=== PATIENT | male | born 1970 | race Caucasian/White ===

== ENCOUNTER 2021-07-06 12:14 | Outpatient (REF) | payer MEDICARE, MEDICAID, SELFPAY ==
--- NOTE | ~2021-07-06 | XR_ITS ---
EXAMINATION: XR CHEST CLINICAL INFORMATION: Cough. COMPARISON: CT chest 03/21/2020. TECHNIQUE: 2 views of the chest were obtained. FINDINGS: The lungs are well-expanded with increased parahilar interstitial markings slightly greater on the right with patchy opacities in the right upper lower lobe suspicious for infiltrates. No evidence of pleural effusion. The heart size and pulmonary vascularity is normal. No gross bony abnormality seen. XR/XR chest 2V IMPRESSION: Bilateral increased interstitial markings especially right lung suggestive interstitial infiltrates or edema. In addition there is patchy opacities seen in the right upper and right lower lobe. There is some underlying chronic interstitial lung changes which were noted on the previous CT chest exam. Patchy nonspecific peribronchial opacities upper lobes and peripheral subpleural chronic gastritis disease in the right upper lobe with air bronchograms were noted on the previous CT exam 03/21/2020 with some fibrotic changes. Normal heart size.
[2021-07-06 14:54] LABS: Influenza A PCR NEGATIVE (Negative); Influenza B PCR NEGATIVE (Negative); Resp Syncy Virus RNA Qual PCR NEGATIVE (Negative); SARS COV2 PCR INHOUSE NEGATIVE (Negative)
== END 2021-07-06 12:15 | disposition home or self-care (01) ==
LOC: HO.HMGCX 12:14
PROVIDERS: PCP Internal Medicine; Visit Provider Physician Assistant Medical
DX: J06.9 Acute upper respiratory infection, unspecified (principal); R05.9 Cough, unspecified; Z20.822 Contact with and (suspected) exposure to COVID-19
CPT/HCPCS: 0241U; 36415; 71046